=== PATIENT | male | born 1970 | race Caucasian/White ===

== ENCOUNTER 2022-07-29 19:27 | Emergency (ER) | payer SELFPAY ==
[~2022-07-29] VITALS: Ht 172.7 cm; Wt 73.0 kg
[2022-07-29 20:31] VITALS: BP 109/59
[2022-07-30] MEDS ORDERED: QUETIAPINE FUMARATE 50MG TABLET PO SCH (00:15)
[2022-07-30] MEDS ORDERED: DIVALPROEX SODIUM 250MG ER TABLET PO ONE (00:15)
== END 2022-07-30 01:00 | disposition left against medical advice (07) ==
LOC: ER 19:27
DX: F32.A Depression, unspecified (principal); R45.851 Suicidal ideations; F41.9 Anxiety disorder, unspecified; Z91.51 Personal history of suicidal behavior
CPT/HCPCS: 99281